=== PATIENT | female | born 1950 | race African-American/Black ===

== ENCOUNTER 2018-07-06 10:07 | Inpatient (IN) | payer MEDICARE, MEDICAID ==
[~2018-07-06] VITALS: Ht 177.8 cm; Wt 108.1 kg
[~2018-07-06 10:07] MED LIST: ALBUTEROL SULF8.5 GM INH; AMLODIPINE BESY10 MG ORAL; AZITHROMYCIN250 MG ORAL; CARVEDILOL25 MG ORAL; CLONIDINE0.1 MG GT; CLONIDINE0.1 MG PO; CLONIDINE1 EAC1 TD; CLOPIDOGREL75 MG ORAL; FAMOTIDINE20 MG ORAL; FUROSEMIDE20 M1 ORAL; FUROSEMIDE40 MG ORAL; HUMALOG100 UNIT/3 SUBQ; ISORDIL40 M1 PO; ISORDIL40 MG ORAL; LANTUS SOL100 UNIT/1 SUBQ; LANTUS5 UNITS SUBQ; LEVOTHYROXINE50 MCG ORAL; LIPITOR40 MG ORAL; LOSARTAN POTAS100 MG ORAL; OYSCO 500+D TA1 EAC1 PO; VITAMIN B-12250 MC2 PO; VITAMIN D22000 UNIT PO; Vit B12 PO
[2018-07-06] MEDS ORDERED: cloNIDine 0.2mg Tab ORAL ONE (10:30)
[2018-07-06] MEDS ORDERED: Morphine Sulfate 4mg/ml Inj (IV/IM USE ONLY) IVP ONE (10:45)
--- NOTE | 2018-07-06 10:52 | Emergency Room Report ---
History of Present Illness General Chief Complaint: Back Pain-No Injury Source: Patient Present Illness HPI Patient is a 67-year-old female presented after increased sharp left-sided flank pain. Patient reports having increased stabbing type pain. She had recently been seen in the hospital after pancreatitis episode. The patient had been dialyzed earlier in the day. The patient did not take her blood pressure medications. The patient reports having severe pain which was associated with diarrhea. 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 Hx Cerebrovascular Accident: Yes - December 2010 Hx Weakness: Yes - Left side weakness Review of Systems All Other Systems: negative except mentioned in HPI Physical Exam Vital Signs Date Time Temp Pulse Resp B/P (MAP) Pulse Ox O2 Delivery O2 Flow Rate FiO2 07/06/18 10:11 98.1 103 16 221/107 95 Room Air 98.1 Sp02 EP Interpretation: reviewed, normal General Appearance: normal inspection, well appearing, no apparent distress, alert, obese, Chronically Ill Head: atraumatic ENT: normal ENT inspection, hearing grossly normal, normal voice Neck: normal inspection, full range of motion, supple, no bony tend Respiratory: normal inspection, lungs clear, normal breath sounds, no respiratory distress, no retraction, no wheezing Cardiovascular #1: regular rate, rhythm, no edema Gastrointestinal: normal inspection, normal bowel sounds, non tender, soft, no guarding, no hernia Genitourinary: no CVA tenderness Musculoskeletal: normal inspection, back normal, normal range of motion Neurologic: normal inspection, alert, oriented x3, responsive, electric 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 Differential diagnosis included was not limited to pneumonia, renal stone, rib fracture, pulmonary embolism, pancreatitis, ulcer, enteritis, pyelonephritis among others. Because of complexity of patient's case laboratory testing and imaging studies were ordered.The laboratory testing was notable for normal white blood count. CT the abdomen pelvis read by radiology showed evidence of pancreatic inflammation consistent with pancreatitis. The patient was noted to have previous CT several months ago with similar symptoms. Patient was noted to have normal lipase. Patient is given clonidine for blood pressure. Dr. Talon Bro was contacted for inpatient management due to panel physician Labs Test 07/06/18 10:40 White Blood Count 6.9 K/UL (4.8-10.8) Red Blood Count 4.64 M/UL (4.20-5.40) Hemoglobin 12.2 G/DL (12.0-16.0) Hematocrit 39.3 % (37.0-47.0) Mean Corpuscular Volume 85 FL (80-99) Mean Corpuscular Hemoglobin 26.2 PG (27.0-31.0) Mean Corpuscular Hemoglobin Concent 31.0 G/DL (32.0-36.0) Red Cell Distribution Width 14.0 % (11.6-14.8) Platelet Count 222 K/UL (150-450) Mean Platelet Volume 8.2 FL (6.5-10.1) Neutrophils (%) (Auto) 62.3 % (45.0-75.0) Lymphocytes (%) (Auto) 26.0 % (20.0-45.0) Monocytes (%) (Auto) 7.9 % (1.0-10.0) Eosinophils (%) (Auto) 3.2 % (0.0-3.0) Basophils (%) (Auto) 0.5 % (0.0-2.0) Sodium Level 135 MMOL/L (136-145) Potassium Level 3.2 MMOL/L (3.5-5.1) Chloride Level 97 MMOL/L (98-107) Carbon Dioxide Level 25 MMOL/L (21-32) Anion Gap 13 mmol/L (5-15) Blood Urea Nitrogen 5 mg/dL (7-18) Creatinine 3.7 MG/DL (0.55-1.30) Estimat Glomerular Filtration Rate 14.8 mL/min (>60) Glucose Level 174 MG/DL (74-106) Calcium Level 9.1 MG/DL (8.5-10.1) Total Bilirubin 0.5 MG/DL (0.2-1.0) Aspartate Amino Transf (AST/SGOT) 14 U/L (15-37) Alanine Aminotransferase (ALT/SGPT) 10 U/L (12-78) Alkaline Phosphatase 188 U/L (46-116) Troponin I 0.005 ng/mL (0.000-0.056) Total Protein 8.0 G/DL (6.4-8.2) Albumin 3.8 G/DL (3.4-5.0) Globulin 4.2 g/dL Albumin/Globulin Ratio 0.9 (1.0-2.7) Lipase 65 U/L (73-393) Last Vital Signs Date Time Temp Pulse Resp B/P (MAP) Pulse Ox O2 Delivery O2 Flow Rate FiO2 07/06/18 10:47 98.1 07/06/18 10:35 167/79 07/06/18 10:11 103 16 95 Room Air Status: unchanged Disposition: ADMITTED INPATIENT Condition: Stable Referrals: NON PHYSICIAN (PCP) Sancho Castro MD Jul 06, 2018 10:52
[2018-07-06 10:58] LABS: BASOPHILS % (AUTO) 0.5 % (0.0-2.0); EOSINOPHILS % (AUTO) 3.2 % (0.0-3.0); HEMATOCRIT 39.3 % (37.0-47.0); HEMOGLOBIN 12.2 G/DL (12.0-16.0); MEAN CORPUSCULAR VOLUME 85 FL (80-99); MONOCYTES % (AUTO) 7.9 % (1.0-10.0); NEUTROPHILS % (AUTO) 62.3 % (45.0-75.0); PLATELET COUNT 222 K/UL (150-450); RED BLOOD COUNT 4.64 M/UL (4.20-5.40); WHITE BLOOD COUNT 6.9 K/UL (4.8-10.8)
[2018-07-06 11:00] VITALS: BP 167/79
[2018-07-06 11:10] LABS: ANION GAP 13 mmol/L (5-15); BLOOD UREA NITROGEN 5 mg/dL (7-18); CALCIUM 9.1 MG/DL (8.5-10.1); CARBON DIOXIDE 25 MMOL/L (21-32); CHLORIDE 97 MMOL/L (98-107); CREATININE 3.7 MG/DL (0.55-1.30); POTASSIUM 3.2 MMOL/L (3.5-5.1); SODIUM 135 MMOL/L (136-145)
[2018-07-06 11:14] LABS: ALANINE AMINOTRANSFERASE 10 U/L (12-78); ALBUMIN 3.8 G/DL (3.4-5.0); ALBUMIN/GLOBULIN RATIO 0.9 (1.0-2.7); ALKALINE PHOSPHATASE 188 U/L (46-116); ASPARTATE AMINO TRANSFERASE 14 U/L (15-37); BILIRUBIN,TOTAL 0.5 MG/DL (0.2-1.0)
--- NOTE | 2018-07-06 11:37 | Diagnostic Imaging Report ---
EXAM: CT Abdomen and Pelvis Without Intravenous Contrast CLINICAL HISTORY: ABD PAIN TECHNIQUE: Axial computed tomography images of the abdomen and pelvis without intravenous contrast. CTDI is 19.90 mGy and DLP is 1072 mGy-cm. One or more of the following dose reduction techniques were used: automated exposure control, adjustment of the mA and/or kV according to patient size, use of iterative reconstruction technique. COMPARISON: CT abdomen and pelvis dated 04/10/18 FINDINGS: Lung bases: Mild dependent atelectasis in bilateral lung bases. ABDOMEN: Liver: Unremarkable. Gallbladder and bile ducts: Status post cholecystectomy. No ductal dilation. Pancreas: Nonspecific enlarged/edematous appearance of the pancreatic head and uncinate process without definite mass lesion identified. Mild peripancreatic inflammatory stranding, which may suggest mild residual pancreatitis. No pancreatic ductal dilatation. No peripancreatic fluid collections. Spleen: Unremarkable. No splenomegaly. Adrenals: Unchanged appearance of a 1.5 cm left adrenal nodule, likely an adenoma. Kidneys and ureters: Unremarkable. No obstructing stones. No hydronephrosis. Stomach and bowel: Scattered diverticula in the descending and sigmoid colon without wall thickening or adjacent inflammatory change. No obstruction. PELVIS: Appendix: Not definitively identified. No findings to suggest acute appendicitis. Bladder: Unremarkable. No stones. Reproductive: The uterus and ovaries are not visualized and may be surgically absent. ABDOMEN and PELVIS: Intraperitoneal space: Unremarkable. No free air. No significant fluid collection. Bones/joints: Multilevel degenerative changes throughout the visualized spine with disc space loss and endplate osteophytes. No acute fracture. No dislocation. Soft tissues: Unremarkable. Vasculature: Atherosclerotic calcifications throughout the abdominal aorta and its proximal branches. No abnormal dilatation. Lymph nodes: Unremarkable. No enlarged lymph nodes. IMPRESSION: 1. Nonspecific enlarged/edematous appearance of the pancreatic head and uncinate process without definite mass lesion identified. Mild peripancreatic inflammatory stranding, which may suggest mild residual pancreatitis. No pancreatic ductal dilatation. No peripancreatic fluid collections. If there is continued concern, this can be further evaluated with pancreatic protocol contrast-enhanced CT or MRI. 2. Unchanged appearance of a 1.5 cm left adrenal nodule, likely an adenoma. 3. Descending and sigmoid colonic diverticulosis without evidence of acute inflammation.
[2018-07-06 13:00] VITALS: BP 114/53
[2018-07-06] MEDS ORDERED: OMEPRAZOLE20 M3 ORAL (15:14)
[2018-07-06] MEDS ORDERED: METOCLOPRAMIDE H5 M1 ORAL (15:14)
[2018-07-06] MEDS ORDERED: Morphine Sulfate 4mg/ml Inj (IV/IM USE ONLY) IVP SCH (15:45)
[2018-07-06 16:00] VITALS: BP 147/73
[2018-07-06] MEDS ORDERED: Morphine Sulfate 4mg/ml Inj (IV/IM USE ONLY) IVP PRN (16:00)
--- NOTE | 2018-07-06 16:04 | History & Physical ---
History and Physical History & Physicial HP dictated # [id number] Talon Bro MD Jul 06, 2018 16:04
[2018-07-06] MEDS: Carvedilol 12.5mg tab ORAL SCH ×2 (16:05→20:45)
[2018-07-06] MEDS: Losartan 50mg tab ORAL SCH (16:30)
[2018-07-06] MEDS: NovoLOG Insulin Flexpen SUBQ SCH ×2 (16:32→20:47)
[2018-07-06 17:13] VITALS: BP 147/73
--- NOTE | 2018-07-06 19:47 | History and Physical Report ---
DATE OF ADMISSION: 07/06/2018 CHIEF COMPLAINT: Severe left-sided flank pain. HISTORY OF PRESENT ILLNESS: This is a 67-year-old female with history of end-stage renal disease. She has been on dialysis since November 2015. She has had uncontrolled blood pressure for many years. She stated that it started in 1970s and also, she has diabetes. She had recently cholecystectomy at [facility], but since then, she has been in and out of the hospital for different reasons. She was admitted once for fluid overload at [facility], but she has also had this severe left-sided flank pain for which she was brought into the emergency room today. She had her dialysis today, however, the pain started just before dialysis started. The pain she describes as stabbing pain, which is worse she has ever had in her life. She was seen in the emergency room. The CT scan showed some enlarged head of the pancreas with some inflammation and there was mild inflammation in the rest of the pancreas. The question was if this is resolving pancreatitis. PAST MEDICAL HISTORY: Besides history of diabetes and hypertension, the patient has history of hypothyroidism. She has end-stage renal disease as mentioned, on dialysis every Sunday, and Sunday. She had a CVA in 2010 causing left-sided weakness, but she has regained most of her function and she walks with a cane. ALLERGIES: She has some problem with hydralazine, which she is intolerant. SOC: ial History The patient lives at home by herself. No history of smoking or alcohol abuse. REVIEW OF SYSTEMS: Noncontributory. PHYSICAL EXAMINATION: GENERAL: The patient is an elderly female, in no acute distress. VITAL SIGNS: Initial blood pressure was 221/107, pulse 103, temperature 98.1 degrees, respiratory rate of 16, however, the latest blood pressure is 110/53, pulse 83, and temperature 98.1 degrees. The patient was treated in the ER for her blood pressure. NECK: Supple. LUNGS: Clear to auscultation. HEART: S1 and S2 without murmurs or rubs. ABDOMEN: Soft and nontender. There is mild tenderness in the left flank. There is no abdominal tenderness. EXTREMITIES: No cyanosis or edema. LABORATORY FINDINGS: The CBC shows WBC of 6900, hematocrit is 39.3, hemoglobin is 12.2 and platelet is 222,000. The chemistry panel shows serum sodium 135, potassium 3.3, chloride 97, CO2 25, BUN is 5, creatinine 3.7, blood sugar is 174, calcium is 9.1, lipase is 65 and albumin is 3.8. ASSESSMENT: This is a 67-year-old female who is admitted with severe left flank pain, which is stabbing. She had signs of pancreatitis on CT scan. However, the lipase is not elevated. The question is ongoing pancreatitis or just resolving and also, the pain is atypical for pancreatitis. The question is if this is referred pain from the spine and/or musculoskeletal pain. PLAN: The patient will be on morphine IV, clear liquid diet. GI consultation and Neurology consultation will be obtained. The patient will likely need to have an MRI of the spine to see if the herniated disc, radiculopathy, etc. The case was discussed extensively with the patient and the son, who was at bedside. Talon Bro M.D. DR: Holly JOB#: [id number] CC:
[2018-07-06 20:00] VITALS: BP 154/65
[2018-07-06] MEDS: Morphine Sulfate 2mg/ml Inj IVP PRN (20:45)
[2018-07-06] MEDS: Atorvastatin 80mg tab ORAL SCH (20:45)
[2018-07-06] MEDS ORDERED: Zolpidem 5mg tab ORAL PRN (21:00)
[2018-07-06] MEDS ORDERED: Losartan 50mg tab ORAL SCH (21:00)
[2018-07-07] VITALS (7 sets, daily range): BP systolic 135–161; BP diastolic 72–94
[2018-07-07] MEDS: NovoLOG Insulin Flexpen SUBQ SCH ×4 (06:10→20:57)
[2018-07-07 08:14] LABS: ALANINE AMINOTRANSFERASE 14 U/L (12-78); ALBUMIN 3.2 G/DL (3.4-5.0); ALBUMIN/GLOBULIN RATIO 0.9 (1.0-2.7); ALKALINE PHOSPHATASE 160 U/L (46-116); ANION GAP 10 mmol/L (5-15); ASPARTATE AMINO TRANSFERASE 13 U/L (15-37); BILIRUBIN,TOTAL 0.5 MG/DL (0.2-1.0); BLOOD UREA NITROGEN 11 mg/dL (7-18); CALCIUM 8.4 MG/DL (8.5-10.1); CARBON DIOXIDE 25 MMOL/L (21-32); CHLORIDE 100 MMOL/L (98-107); CHOLESTEROL 175 MG/DL (< 200); CREATININE 5.7 MG/DL (0.55-1.30); HDL CHOLESTEROL 76 MG/DL (40-60); POTASSIUM 4.1 MMOL/L (3.5-5.1); SODIUM 135 MMOL/L (136-145); TRIGLYCERIDES 82 MG/DL (30-150)
[2018-07-07] MEDS: Losartan 50mg tab ORAL SCH ×2 (08:14→17:22)
[2018-07-07] MEDS ORDERED: Losartan 50mg tab ORAL SCH (09:00)
[2018-07-07] MEDS: Morphine Sulfate 2mg/ml Inj IVP PRN ×2 (10:57→22:26)
[2018-07-07] MEDS ORDERED: Gadavist 7.5mMol/7.5ml vial IV PRN (11:45)
--- NOTE | 2018-07-07 13:12 | General Progress Note ---
Assessment/Plan Problem List: (1) HTN (hypertension) ICD Codes: I10 - Essential (primary) hypertension SNOMED: 09028896 (2) ESRD (end stage renal disease) on dialysis ICD Codes: N18.6 - End stage renal disease; Z99.2 - Dependence on renal dialysis SNOMED: 677915978 (3) Pancreatitis ICD Codes: K85.90 - Acute pancreatitis without necrosis or infection, unspecified SNOMED: 56561861 Assessment/Plan pain meds MRI of spine GI F/U Watch BP HD on Sunday Subjective Allergies: Coded Allergies: No Known Allergies (Unverified , 05/20/13) Subjective feels better Objective Last 24 Hour Vital Signs Date Time Temp Pulse Resp B/P (MAP) Pulse Ox O2 Delivery O2 Flow Rate FiO2 07/07/18 12:00 98.1 74 18 155/76 (102) 98 98.1 07/07/18 11:27 97.7 07/07/18 10:57 97.7 07/07/18 09:05 Room Air 07/07/18 08:14 74 157/72 07/07/18 08:00 97.7 74 19 157/72 (100) 98 97.7 07/07/18 04:00 97.9 76 20 148/75 (99) 98 97.9 07/07/18 00:00 98.0 71 20 135/74 (94) 95 98.0 07/06/18 21:00 Room Air 07/06/18 20:45 72 154/65 07/06/18 20:00 97.9 72 20 154/65 (94) 97 97.9 07/06/18 17:13 98.2 85 20 147/73 (97) 98 98.2 07/06/18 16:26 98.1 07/06/18 16:05 83 147/73 07/06/18 16:05 83 110/53 07/06/18 16:00 98.2 85 20 147/73 (97) 98 98.2 07/06/18 15:20 Room Air 07/06/18 15:00 98.1 83 18 110/53 98 Room Air 98.1 Intake and Output 07/06/18 07/07/18 19:00 07:00 Intake Total 240 ml Output Total 30 ml Balance 210 ml Intake Oral 240 ml Output Urine Total 30 ml # Voids 1 3 Laboratory Tests 10/14/18 06:15: Sodium Level 135L, Potassium Level 4.1, Chloride Level 100, Carbon Dioxide Level 25, Anion Gap 10, Blood Urea Nitrogen 11, Creatinine 5.7#H, Estimat Glomerular Filtration Rate 9.0, Glucose Level 197H, Calcium Level 8.4L, Total Bilirubin 0.5, Aspartate Amino Transf (AST/SGOT) 13L, Alanine Aminotransferase ( ALT/SGPT) 14, Alkaline Phosphatase 160H, Total Protein 6.8, Albumin 3.2L, Globulin 3.6, Albumin/Globulin Ratio 0.9L, Triglycerides Level 82, Cholesterol Level 175, LDL Cholesterol 74, HDL Cholesterol 76H, Cholesterol/HDL Ratio 2.3L Height (Feet): 5 Height (Inches): 10.00 Weight (Pounds): 241 Respiratory/Chest: lungs clear Abdomen: non tender Edema: no edema noted Generalized Talon Bro MD Jul 07, 2018 13:12
[2018-07-07] MEDS: Miralax 17gm pkt ORAL PRN (17:28)
--- NOTE | 2018-07-07 19:45 | Consultation ---
DATE OF CONSULTATION: 07/07/2018 GASTROENTEROLOGY CONSULTATION CONSULTING PHYSICIAN: Julio Cesar Adams M.D. CHIEF COMPLAINT: Abdominal pain. HISTORY OF PRESENT ILLNESS: This is a very pleasant 67-year-old female with past medical history of pancreatitis possibly gallstone induced in March 2018. She had a cholecystectomy done at another facility, another hospital, was discharged. According to her, since that she has been still having abdominal pain, sharp, left-sided, going to the back. She stated the pain was constant, but yesterday got severely worse that is why she came to the hospital. She stated she does not drink, she does not smoke, but used to drink only two drinks per month. Now, she does not even drink that and she is still having pain. She also admits to a weight loss of 20 pounds in the last three months. PAST MEDICAL HISTORY: Significant for: 1. History of diabetes. 2. . 3. Possible gallstone pancreatitis, status post cholecystectomy. 4. Endstage renal disease, on hemodialysis. 5. Diverticulosis. ALLERGIES: No known allergies. MEDICATIONS: Please see medication reconciliation list. SOCIAL HISTORY: The patient is a social drinker. No IV drug abuse. No tobacco use. FAMILY HISTORY: Noncontributory. REVIEW OF SYSTEMS: A 10-point review of systems was performed and pertinent positives in HPI. PHYSICAL EXAMINATION: VITAL SIGNS: Temperature 97.9, pulse 76, respirations 20, and blood pressure . HEENT: Normocephalic and atraumatic. Sclerae anicteric. NECK: Supple. No evidence of lymphadenopathy. CARDIOVASCULAR: Regular rate and rhythm, plus S1 and S2. LUNGS: breath sounds bilaterally. ABDOMEN: soft. Minimal tenderness to palpation in the epigastric area. No rebound. No guarding. No peritoneal sign. EXTREMITIES: No cyanosis, no clubbing, no edema. LABORATORY AND DIAGNOSTIC DATA: White count 6.9, hemoglobin 12, hematocrit 39, and platelet count is 222. Chem-7, sodium 135, potassium 3.2, BUN is 5, creatinine . Liver function tests normal except for alkaline phosphatase of 188. CT scan without contrast showed evidence of pancreatic edema suspicious for pancreatitis. No biliary dilatation, diverticulosis without any diverticulitis. ASSESSMENT AND PLAN: This is a 67-year-old female with recurrent, seems to be pancreatitis, etiology at this time is unknown. According to the patient, she is not drinking or smoking anymore. A 20 pounds weight loss is concerning. Plan will be to order CT with contrast. Pancreatic protocol. The patient is dialysis patient, it should be arranged by to be followed by hemodialysis to filter out the contrast. We are going to order CT with contrast, pancreatic protocol to get another view of the pancreas. We ordered lipid panel. We ordered CA 19-9. We are going to repeat order laboratories for tomorrow. We are going to advance her diet to full liquid diet. The patient might benefit from the EUS if CT with contrast is concerning. Julio Cesar Adams M.D. DR: VANESSA JOB#: [id number] CC:
[2018-07-07] MEDS: Carvedilol 12.5mg tab ORAL SCH (20:54)
[2018-07-07] MEDS: Atorvastatin 80mg tab ORAL SCH (20:54)
[2018-07-08] VITALS (8 sets, daily range): BP systolic 132–177; BP diastolic 70–96
[2018-07-08] MEDS: NovoLOG Insulin Flexpen SUBQ SCH ×4 (05:41→21:25)
[2018-07-08 06:42] LABS: BASOPHILS % (AUTO) 0.8 % (0.0-2.0); EOSINOPHILS % (AUTO) 6.6 % (0.0-3.0); HEMATOCRIT 34.3 % (37.0-47.0); HEMOGLOBIN 11.3 G/DL (12.0-16.0); LYMPHOCYTES % (AUTO) 32.2 % (20.0-45.0); MEAN CORPUSCULAR VOLUME 85 FL (80-99); MONOCYTES % (AUTO) 10.3 % (1.0-10.0); NEUTROPHILS % (AUTO) 50.2 % (45.0-75.0); PLATELET COUNT 198 K/UL (150-450); RED BLOOD COUNT 4.03 M/UL (4.20-5.40); RED CELL DISTRIBUTION WIDTH 14.6 % (11.6-14.8); WHITE BLOOD COUNT 4.5 K/UL (4.8-10.8)
[2018-07-08 06:57] LABS: AMYLASE 18 U/L (25-115)
[2018-07-08 07:00] LABS: ALANINE AMINOTRANSFERASE 16 U/L (12-78); ALBUMIN 3.5 G/DL (3.4-5.0); ALBUMIN/GLOBULIN RATIO 0.9 (1.0-2.7); ALKALINE PHOSPHATASE 190 U/L (46-116); ANION GAP 11 mmol/L (5-15); ASPARTATE AMINO TRANSFERASE 14 U/L (15-37); BILIRUBIN,TOTAL 0.5 MG/DL (0.2-1.0); BLOOD UREA NITROGEN 16 mg/dL (7-18); CALCIUM 8.8 MG/DL (8.5-10.1); CARBON DIOXIDE 25 MMOL/L (21-32); CHLORIDE 97 MMOL/L (98-107); CHOLESTEROL 179 MG/DL (< 200); CREATININE 7.3 MG/DL (0.55-1.30); HDL CHOLESTEROL 83 MG/DL (40-60); POTASSIUM 3.8 MMOL/L (3.5-5.1); SODIUM 133 MMOL/L (136-145); TRIGLYCERIDES 101 MG/DL (30-150)
[2018-07-08] MEDS ORDERED: Isovue-300 100ml vial INJ PRN (08:00)
[2018-07-08] MEDS: Carvedilol 12.5mg tab ORAL SCH ×2 (08:11→20:22)
[2018-07-08] MEDS: Losartan 50mg tab ORAL SCH ×2 (08:11→17:06)
--- NOTE | 2018-07-08 12:35 | General Progress Note ---
Assessment/Plan Problem List: (1) HTN (hypertension) ICD Codes: I10 - Essential (primary) hypertension SNOMED: 78755389 (2) ESRD (end stage renal disease) on dialysis ICD Codes: N18.6 - End stage renal disease; Z99.2 - Dependence on renal dialysis SNOMED: 674109299 (3) Pancreatitis ICD Codes: K85.90 - Acute pancreatitis without necrosis or infection, unspecified SNOMED: 68118753 Assessment/Plan pain meds MRI of spine GI F/U Watch BP HD on Sunday Subjective Allergies: Coded Allergies: No Known Allergies (Unverified , 05/20/13) Subjective all noted Objective Last 24 Hour Vital Signs Date Time Temp Pulse Resp B/P (MAP) Pulse Ox O2 Delivery O2 Flow Rate FiO2 07/08/18 08:11 163/80 07/08/18 08:11 76 163/80 07/08/18 08:11 76 163/80 07/08/18 07:54 98.1 76 19 163/80 (107) 92 98.1 07/08/18 07:47 Room Air 07/08/18 04:00 98.1 75 19 132/70 (90) 92 98.1 07/08/18 02:37 75 158/80 (106) 07/08/18 00:55 98.7 76 19 165/85 (111) 94 98.7 07/07/18 22:56 98.7 07/07/18 22:26 98.7 07/07/18 22:13 80 157/94 (115) 07/07/18 21:14 Room Air 07/07/18 20:54 79 161/94 07/07/18 20:53 98.7 79 19 161/94 (116) 93 98.7 07/07/18 17:22 151/80 07/07/18 16:00 97.7 77 19 151/80 (103) 98 97.7 Intake and Output 07/07/18 07/08/18 19:00 07:00 Intake Total 1080 ml Balance 1080 ml Intake Oral 1080 ml # Voids 4 3 Laboratory Tests 07/08/18 05:50: White Blood Count 4.5L, Red Blood Count 4.03L, Hemoglobin 11.3L, Hematocrit 34.3L, Mean Corpuscular Volume 85, Mean Corpuscular Hemoglobin 28.1, Mean Corpuscular Hemoglobin Concent 33.0, Red Cell Distribution Width 14.6, Platelet Count 198, Mean Platelet Volume 7.8, Neutrophils (%) (Auto) 50.2, Lymphocytes (% ) (Auto) 32.2, Monocytes (%) (Auto) 10.3H, Eosinophils (%) (Auto) 6.6H, Basophils (%) (Auto) 0.8, Sodium Level 133L, Potassium Level 3.8, Chloride Level 97L, Carbon Dioxide Level 25, Anion Gap 11, Blood Urea Nitrogen 16, Creatinine 7.3H, Estimat Glomerular Filtration Rate 6.8, Glucose Level 209H, Calcium Level 8.8, Total Bilirubin 0.5, Aspartate Amino Transf (AST/SGOT) 14L, Alanine Aminotransferase (ALT/SGPT) 16, Alkaline Phosphatase 190H, Total Protein 7.3, Albumin 3.5, Globulin 3.8, Albumin/Globulin Ratio 0.9L, Triglycerides Level 101, Cholesterol Level 179, LDL Cholesterol 70, HDL Cholesterol 83H, Cholesterol/HDL Ratio 2.2L, Amylase Level 18L, Lipase 67L, CA 19-9 Antigen [Pending] Height (Feet): 5 Height (Inches): 10.00 Weight (Pounds): 253 Cardiovascular: normal rate Respiratory/Chest: lungs clear Edema: no edema noted Generalized Talon Bro MD Jul 08, 2018 12:35
[2018-07-08] MEDS ORDERED: Heparin Sod 1000 units/ml 10ml IV PRN (12:43)
--- NOTE | 2018-07-08 15:25 | Diagnostic Imaging Report ---
Indication: Abdominal pain Technique: Continuous helical transaxial imaging of the abdomen and pelvis was obtained from the lung bases to the pubic symphysis during intravenous contrast administration. Coronal 2-D reformats were also obtained. Study obtained in a Siemens sensation [address] Automatic Exposure Control was utilized. Total Dose length Product (DLP): [address] Dose Index Volume (CTDIvol): 22.44, 29.03 mGy Comparison: Noncontrast CT abdomen pelvis 07/06/2018 Findings: Note the injection bolus is relatively poor. As such the evaluation is limited. There is a suspected mass in the pancreatic head suspicious for pancreatic adenocarcinoma. The biliary ducts do not appear dilated. The mass primarily involves the uncinate process. There is relative atrophy of the body and tail the pancreas which is a secondary sign. There is a mass involving the left adrenal gland which may be a adenoma. Metastatic disease not excluded. There are are several ill-defined hypodensities in the liver suspicious for metastatic neoplasm. Further evaluation with endoscopic ultrasound recommended. This may also aid and biopsy as this is the preferred method for biopsy of this mass. Differential diagnosis includes focal pancreatitis but this is felt to be less likely based on the appearance. Cholecystectomy noted. There is mild right posterior atelectasis. The spleen is unremarkable as visualized. Aortoiliac calcifications are present. No definite adenopathy is appreciated. The kidneys are atrophic. Diverticula noted in the sigmoid colon. No evidence of diverticulitis. Bladder is completely nondistended. There is narrowing of intervertebral discs and accompanying endplate osteophyte formation. Hypertrophied facet joints also demonstrated.. Degenerative changes of both hips also noted. IMPRESSION: Suspicion of a 3.5 cm mass involving the head of the pancreas and uncinate process. Findings suspicious for malignancy. Evaluation and biopsy with endoscopic ultrasound recommended. Differential includes focal pancreatitis which is felt to be less likely based on imaging. Suspicion of metastatic neoplasm involving the liver. Nonspecific mass involving the left adrenal gland. Adenoma versus metastatic disease. Diverticulosis of the colon. No evidence of diverticulitis Atrophic kidneys Atherosclerotic vascular disease Mild right basal atelectasis. The CT scanner at [facility] is accredited by the [employer] and the scans are performed using dose optimization techniques as appropriate to a performed exam including Automatic Exposure control.
[2018-07-08] MEDS: Atorvastatin 80mg tab ORAL SCH (20:22)
--- NOTE | 2018-07-08 20:43 | Consultation ---
Consult Note Consult Note NEUROLOGY CONSULTATION: Full note dictated #[id number] 67 y/o, RH, BF with PH of thyroid problems, HTN, DM, ESRD on HD, a stroke with left paresis a few years ago and a cholecystectomy in March 2018. Since she has had her juliet she has been having pain that starts in the epigastric region and radiates into the back and sometimes into the left flank usually after she has just eaten. She rarely gets it spontaneously too. She is free of pain now. ON EXAM: Left hemiparesis Left DTRs 1+ with 0 reflexes on right. IMPRESSION: Pancreatic mass with pancreatic pain. REC: Evaluation and management of pancreatic mass as per GI. Observe Kimberley Rueda M.D., M.S.P.KIMBERLEY MONGE Jul 08, 2018 20:43
[2018-07-08] MEDS: Morphine Sulfate 2mg/ml Inj IVP PRN (21:29)
--- NOTE | 2018-07-08 22:19 | General Progress Note ---
Assessment/Plan Assessment/Plan Assessment - head of pancreas mass, suspicious for carcinoma - ill-defined liver lesions, possible mets - ESRD/HD - Mildly elevated Alk phos - ? renal osteodystrophy, ? liver mets Recommendations - PO as tolerated - await CA 19-9 - check GGT - will arrange for EUS / FNA for Sunday Subjective Allergies: Coded Allergies: No Known Allergies (Unverified , 07/08/18) Subjective Feels better less abdominal pain today tolerating PO Objective Last 24 Hour Vital Signs Date Time Temp Pulse Resp B/P (MAP) Pulse Ox O2 Delivery O2 Flow Rate FiO2 07/08/18 21:00 Room Air 07/08/18 20:22 77 163/76 07/08/18 20:00 97.7 73 19 177/87 (117) 96 97.7 07/08/18 18:11 77 163/76 (105) 07/08/18 17:06 173/96 07/08/18 16:07 97.8 73 18 173/96 (121) 94 97.8 07/08/18 12:00 97.5 79 18 164/89 (114) 95 97.5 07/08/18 08:11 163/80 07/08/18 08:11 76 163/80 07/08/18 08:11 76 163/80 07/08/18 07:54 98.1 76 19 163/80 (107) 92 98.1 07/08/18 07:47 Room Air 07/08/18 04:00 98.1 75 19 132/70 (90) 92 98.1 07/08/18 02:37 75 158/80 (106) 07/08/18 00:55 98.7 76 19 165/85 (111) 94 98.7 07/07/18 22:56 98.7 07/07/18 22:26 98.7 07/07/18 22:13 80 157/94 (115) Intake and Output 07/07/18 07/08/18 19:00 07:00 Intake Total 1080 ml Balance 1080 ml Intake Oral 1080 ml # Voids 4 3 Laboratory Tests 07/08/18 05:50: White Blood Count 4.5L, Red Blood Count 4.03L, Hemoglobin 11.3L, Hematocrit 34.3L, Mean Corpuscular Volume 85, Mean Corpuscular Hemoglobin 28.1, Mean Corpuscular Hemoglobin Concent 33.0, Red Cell Distribution Width 14.6, Platelet Count 198, Mean Platelet Volume 7.8, Neutrophils (%) (Auto) 50.2, Lymphocytes (% ) (Auto) 32.2, Monocytes (%) (Auto) 10.3H, Eosinophils (%) (Auto) 6.6H, Basophils (%) (Auto) 0.8, Sodium Level 133L, Potassium Level 3.8, Chloride Level 97L, Carbon Dioxide Level 25, Anion Gap 11, Blood Urea Nitrogen 16, Creatinine 7.3H, Estimat Glomerular Filtration Rate 6.8, Glucose Level 209H, Calcium Level 8.8, Total Bilirubin 0.5, Aspartate Amino Transf (AST/SGOT) 14L, Alanine Aminotransferase (ALT/SGPT) 16, Alkaline Phosphatase 190H, Total Protein 7.3, Albumin 3.5, Globulin 3.8, Albumin/Globulin Ratio 0.9L, Triglycerides Level 101, Cholesterol Level 179, LDL Cholesterol 70, HDL Cholesterol 83H, Cholesterol/HDL Ratio 2.2L, Amylase Level 18L, Lipase 67L, CA 19-9 Antigen [Pending] Height (Feet): 5 Height (Inches): 10.00 Weight (Pounds): 253 Objective Obese AA woman NCAT supple CTA RRR abd soft obese ND no edema nonfocal Karina Desai MD Jul 08, 2018 22:19
[2018-07-09] VITALS: BP 143/77
[2018-07-09 04:00] VITALS: BP 176/88
[2018-07-09] MEDS: NovoLOG Insulin Flexpen SUBQ SCH ×4 (05:58→20:43)
[2018-07-09 07:16] LABS: BASOPHILS % (AUTO) 0.6 % (0.0-2.0); EOSINOPHILS % (AUTO) 5.6 % (0.0-3.0); HEMATOCRIT 31.7 % (37.0-47.0); HEMOGLOBIN 10.3 G/DL (12.0-16.0); LYMPHOCYTES % (AUTO) 27.7 % (20.0-45.0); MEAN CORPUSCULAR VOLUME 84 FL (80-99); MONOCYTES % (AUTO) 10.1 % (1.0-10.0); NEUTROPHILS % (AUTO) 56.1 % (45.0-75.0); PLATELET COUNT 157 K/UL (150-450); RED BLOOD COUNT 3.77 M/UL (4.20-5.40); RED CELL DISTRIBUTION WIDTH 13.9 % (11.6-14.8); WHITE BLOOD COUNT 4.6 K/UL (4.8-10.8)
[2018-07-09 07:32] LABS: INR 1.1 (0.9-1.1)
[2018-07-09 07:33] LABS: ANION GAP 11 mmol/L (5-15); BLOOD UREA NITROGEN 21 mg/dL (7-18); CALCIUM 8.4 MG/DL (8.5-10.1); CARBON DIOXIDE 23 MMOL/L (21-32); CHLORIDE 98 MMOL/L (98-107); POTASSIUM 3.9 MMOL/L (3.5-5.1); SODIUM 132 MMOL/L (136-145)
[2018-07-09 08:37] VITALS: BP 191/97
--- NOTE | 2018-07-09 08:45 | Consultation ---
DATE OF CONSULTATION: 07/08/2018 NEUROLOGY CONSULTATION CONSULTING PHYSICIAN: Ravinder Rueda M.D. REQUESTING PHYSICIAN: Talon Bro M.D. HISTORY: Ms. Yumiko Raines is a 67-year-old, right-handed, black lady, who does have past history of thyroid problems, hypertension, diabetes mellitus, end-stage renal disease for which she is hemodialysis dependent, a stroke with left sided weakness a few years ago, and a cholecystectomy in March 2018 for abdominal pain and discomfort. Even after she had cholecystectomy performed, she has continued to have pain that starts in her epigastric region and radiates into the back. Sometimes, it radiates straight into the back and sometimes across the left flank. The pain is a sharp severe pain and usually occurs after she has eaten. Rarely, she gets the pain spontaneously without even eating. On the day of admission, she was getting hemodialysis and while she was getting the hemodialysis, she had severe pain radiating from the epigastrium into the back along the left flank. As a result of that, she was hospitalized. At this point in time, she is free of pain. PAST MEDICAL HISTORY: Significant for hypertension, thyroid problems, diabetes mellitus, end-stage renal disease for which she is hemodialysis dependent, stroke with left hemiparesis a few years ago, and cholecystectomy in March 2018. FAMILY HISTORY: Her brother had esophageal cancer. Her mother and sister had heart problems. PERSONAL HISTORY: Home: She lives alone. 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 Habits: She denies use of alcohol, tobacco, or illicit drugs. PRESENT MEDICATIONS: Include atorvastatin, Ambien, Cozaar, insulin, Norvasc, Coreg, Plavix, morphine p.r.n., pantoprazole, MiraLAX p.r.n., Zofran p.r.n. PHYSICAL EXAMINATION: GENERAL: She is a well-developed, well-nourished, obese, black lady, sitting up in a chair, in no acute distress. VITAL SIGNS: Pulse 77/minute, blood pressure 163/76 mmHg, respirations 18/minute, and temperature 97.8 degrees Fahrenheit. HEAD: Normocephalic and atraumatic. EENT: Examination benign. NECK: No neck rigidity was observed. NEUROLOGIC EXAMINATION: MENTAL STATUS EXAMINATION: She was awake and alert. She was oriented to person, place, and time. She was able to recall 3/3 words immediately, after 1 minute, and after 3 minutes. She was able to remember presidents Trump through [employer] with hints. Her mathematical skills were good. Her visuospatial function was preserved. SPEECH: She had no dysarthria. LANGUAGE: She had no aphasia. CRANIAL NERVE EXAMINATION: II: The visual phillips were intact on confrontation testing. III, IV & : The external ocular movements were full and the pupils 3 mm in diameter, equal, round, regular, and reactive to light. V: She had normal facial sensations, and the temporales, masseters, and pterygoids functioned normally. VII: She had mild left VII central facial paresis. VIII: She was able to hear well bilaterally and had no nystagmus. IX: The palate moved symmetrically on phonation. X: She had no hoarseness of voice. XI: The sternocleidomastoids and trapezii functioned normally. XII: The tongue was in the midline without any fasciculations or atrophy. MOTOR SYSTEM: The tone was normal in all four extremities. Examination of muscle mass revealed no focal wasting. Examination of power revealed G 5/5 power except for G 4++/5 power in the left finger extensors and grade 4+/5 power in the left iliopsoas. SENSORY EXAMINATION: She had intact sensations to pinprick, light touch, and graphesthesia. COORDINATION: She performed well on tecies-bp-xxui and mvki-td-elhz testing. The Romberg test was negative. REFLEXES: 0 on the right and 1+ on the left at the biceps, triceps, brachioradialis, and knees; 0 at both ankles. The plantar responses were flexor bilaterally. STANCE: She stood up with support. GAIT: She walked independently. DIAGNOSTIC IMPRESSION: 1. Ms. Yumiko Raines is a 67-year-old, right-handed, black lady, with past history of thyroid problems, hypertension, diabetes mellitus, and end-stage renal disease for which she is hemodialysis dependent, a stroke with left hemiparesis a few years ago, and cholecystectomy in March 2018, who has been having pain that starts in the epigastric region and radiates into the back and sometimes along the left flank. The pain usually occurs after she has just eaten and is quite severe and has a stabbing quality. At times, the pain occurs spontaneously without eating. She had one of these episodes of pain while she was having hemodialysis a few days ago and as a result of that, she was hospitalized. 2. At this point in time, on neurological examination, she has a mild left hemiparesis involving the face and upper and lower extremities and brisker reflexes on the left side compared to the right. She is free of pain at this point in time. 3. Laboratory data revealed that she is anemic with hemoglobin of 11.3 G. Her chemistry panel reveals creatinine elevated to 7.3, glucose elevated to 209, alkaline phosphatase elevated to 190, amylase at 18, and lipase at 67. 4. A CT scan of the abdomen and pelvis without and with contrast reveals a 3.5-cm mass involving the head of the pancreas and the uncinate process suspicious of malignancy. In addition, there seems to be a mass in the liver and a mass in the left adrenal gland. 5. The patient's history and neurological examination are most compatible with pancreatic mass, most probably a tumor causing pancreatic pain. RECOMMENDATIONS: 1. The patient should be evaluated for her pancreatic mass by a electronic masking system operator. Dr. Adams is evaluating her. 2. At this point in time, no neurological intervention is recommended. Thank you for entrusting me with the care of Ms. Eamon Raines. I shall follow her with you. Ravinder Rueda M.D., M.S.P.H. DR: Therese JOB#: [id number] MTDClayton
[2018-07-09] MEDS: Losartan 50mg tab ORAL SCH ×2 (09:00→17:00)
[2018-07-09] MEDS: Carvedilol 12.5mg tab ORAL SCH ×2 (09:00→20:42)
[2018-07-09] MEDS: Morphine Sulfate 2mg/ml Inj IVP PRN ×2 (11:28→23:25)
[2018-07-09 11:56] VITALS: BP 144/70
--- NOTE | 2018-07-09 15:37 | General Progress Note ---
Assessment/Plan Problem List: (1) HTN (hypertension) ICD Codes: I10 - Essential (primary) hypertension SNOMED: 01975400 (2) ESRD (end stage renal disease) on dialysis ICD Codes: N18.6 - End stage renal disease; Z99.2 - Dependence on renal dialysis SNOMED: 949906095 (3) Pancreatitis ICD Codes: K85.90 - Acute pancreatitis without necrosis or infection, unspecified SNOMED: 01009859 (4) Pancreatic mass ICD Codes: K86.9 - Disease of pancreas, unspecified SNOMED: 795311934 Assessment/Plan pain meds Discussed with Dr Desai EUS/FNA tomorrow Discussed with case preparer and liner and RN HD on watch BP Subjective Allergies: Coded Allergies: No Known Allergies (Unverified , 07/08/18) Subjective pt was seen on dialyis Objective Last 24 Hour Vital Signs Date Time Temp Pulse Resp B/P (MAP) Pulse Ox O2 Delivery O2 Flow Rate FiO2 07/09/18 12:21 Room Air 07/09/18 11:56 97.0 82 16 144/70 (94) 96 97.0 07/09/18 09:37 80 191/97 07/09/18 09:00 191/97 07/09/18 09:00 80 191/97 07/09/18 08:57 Room Air 07/09/18 08:37 98.7 80 16 191/97 (128) 98 98.7 07/09/18 04:00 98.2 74 18 176/88 (117) 92 98.2 07/09/18 00:00 97.7 74 18 143/77 (99) 94 97.7 07/08/18 21:00 Room Air 07/08/18 20:22 77 163/76 07/08/18 20:00 97.7 73 19 177/87 (117) 96 97.7 07/08/18 18:11 77 163/76 (105) 07/08/18 17:06 173/96 07/08/18 16:07 97.8 73 18 173/96 (121) 94 97.8 Intake and Output 07/08/18 07/09/18 19:00 07:00 Intake Total 240 ml 460 ml Balance 240 ml 460 ml Intake Oral 240 ml 460 ml # Voids 3 2 Laboratory Tests 07/09/18 05:55: White Blood Count 4.6L, Red Blood Count 3.77L, Hemoglobin 10.3L, Hematocrit 31.7L, Mean Corpuscular Volume 84, Mean Corpuscular Hemoglobin 27.2, Mean Corpuscular Hemoglobin Concent 32.3, Red Cell Distribution Width 13.9, Platelet Count 157, Mean Platelet Volume 7.9, Neutrophils (%) (Auto) 56.1, Lymphocytes (% ) (Auto) 27.7, Monocytes (%) (Auto) 10.1H, Eosinophils (%) (Auto) 5.6H, Basophils (%) (Auto) 0.6, Prothrombin Time 11.5, Prothromb Time International Ratio 1.1, Activated Partial Thromboplast Time 29, Sodium Level 132L, Potassium Level 3.9, Chloride Level 98, Carbon Dioxide Level 23, Anion Gap 11, Blood Urea Nitrogen 21H, Creatinine 9.0H, Estimat Glomerular Filtration Rate 5.3, Glucose Level 163H, Calcium Level 8.4L, Gamma Glutamyl Transpeptidase 40 Height (Feet): 5 Height (Inches): 10.00 Weight (Pounds): 259 Respiratory/Chest: lungs clear Abdomen: tender Talon Bro MD Jul 09, 2018 15:37
[2018-07-09 15:54] VITALS: BP 166/85
[2018-07-09 20:00] VITALS: BP 155/78
[2018-07-09] MEDS: Atorvastatin 80mg tab ORAL SCH (20:42)
--- NOTE | 2018-07-09 20:50 | Neurology Progress Note ---
Interim History Interim History Interim History Ms. Eamon Raines feels about the same as yesterday. She continues to have the severe pain that starts in the epigastric region and then goes in the back. Plans are for an endoscopy and biopsy tomorrow. She denies any new neurologic symptoms. Review of Systems Neuro Review of Systems Benign. Objective Physical Exam Last Vital Signs Date Time Temp Pulse Resp B/P (MAP) Pulse Ox O2 Delivery O2 Flow Rate FiO2 07/09/18 20:00 97.7 86 20 155/78 (103) 93 97.7 07/09/18 12:21 Room Air Laboratory Tests Test 07/09/18 05:55 White Blood Count 4.6 K/UL (4.8-10.8) L Red Blood Count 3.77 M/UL (4.20-5.40) L Hemoglobin 10.3 G/DL (12.0-16.0) L Hematocrit 31.7 % (37.0-47.0) L Mean Corpuscular Volume 84 FL (80-99) Mean Corpuscular Hemoglobin 27.2 PG (27.0-31.0) Mean Corpuscular Hemoglobin Concent 32.3 G/DL (32.0-36.0) Red Cell Distribution Width 13.9 % (11.6-14.8) Platelet Count 157 K/UL (150-450) Mean Platelet Volume 7.9 FL (6.5-10.1) Neutrophils (%) (Auto) 56.1 % (45.0-75.0) Lymphocytes (%) (Auto) 27.7 % (20.0-45.0) Monocytes (%) (Auto) 10.1 % (1.0-10.0) H Eosinophils (%) (Auto) 5.6 % (0.0-3.0) H Basophils (%) (Auto) 0.6 % (0.0-2.0) Prothrombin Time 11.5 SEC (9.30-11.50) Prothromb Time International Ratio 1.1 (0.9-1.1) Activated Partial Thromboplast Time 29 SEC (23-33) Sodium Level 132 MMOL/L (136-145) L Potassium Level 3.9 MMOL/L (3.5-5.1) Chloride Level 98 MMOL/L (98-107) Carbon Dioxide Level 23 MMOL/L (21-32) Anion Gap 11 mmol/L (5-15) Blood Urea Nitrogen 21 mg/dL (7-18) H Creatinine 9.0 MG/DL (0.55-1.30) H Estimat Glomerular Filtration Rate 5.3 mL/min (>60) Glucose Level 163 MG/DL (74-106) H Calcium Level 8.4 MG/DL (8.5-10.1) L Gamma Glutamyl Transpeptidase 40 U/L (5-85) Neurologic Exam Objective PHYSICAL EXAMINATION: GENERAL: She is a well-developed, well-nourished, obese, black lady, sitting up in a chair, in no acute distress. HEAD: Normocephalic and atraumatic. EENT: Examination benign. NECK: No neck rigidity was observed. NEUROLOGIC EXAMINATION: MENTAL STATUS EXAMINATION: She was awake and alert. She was oriented to person, place, and time. She was able to recall 3/3 words immediately, after 1 minute, and after 3 minutes. She was able to remember presidents Trump through [employer] with hints. Her mathematical skills were good. Her visuospatial function was preserved. SPEECH: She had no dysarthria. LANGUAGE: She had no aphasia. CRANIAL NERVE EXAMINATION: II: The visual phillips were intact on confrontation testing. III, IV & : The external ocular movements were full and the pupils 3 mm in diameter, equal, round, regular, and reactive to light. V: She had normal facial sensations, and the temporales, masseters, and pterygoids functioned normally. VII: She had mild left VII central facial paresis. VIII: She was able to hear well bilaterally and had no nystagmus. IX: The palate moved symmetrically on phonation. X: She had no hoarseness of voice. XI: The sternocleidomastoids and trapezii functioned normally. XII: The tongue was in the midline without any fasciculations or atrophy. MOTOR SYSTEM: The tone was normal in all four extremities. Examination of muscle mass revealed no focal wasting. Examination of power revealed G 5/5 power except for G 4++/5 power in the left finger extensors and G 4+/5 power in the left iliopsoas. SENSORY EXAMINATION: She had intact sensations to pinprick, light touch, and graphesthesia. COORDINATION: She performed well on fizcfk-pz-mppz and nxnm-hw-arez testing. The Romberg test was negative. REFLEXES: 0 on the right and 1+ on the left at the biceps, triceps, brachioradialis, and knees; 0 at both ankles. The plantar responses were flexor bilaterally. STANCE: She stood up with support. GAIT: She walked independently. Impression/Recommendations Diagnostic Impression 1. Ms. Yumiko Raines is a 67-year-old, right-handed, black lady, with past history of thyroid problems, hypertension, diabetes mellitus, and end- stage renal disease for which she is hemodialysis dependent, a stroke with left hemiparesis a few years ago, and cholecystectomy in March 2018, who has been having pain that starts in the epigastric region and radiates into the back and sometimes along the left flank. The pain usually occurs after she has just eaten and is quite severe and has a stabbing quality. At times, the pain occurs spontaneously without eating. She had one of these episodes of pain while she was having hemodialysis a few days ago and as a result of that, she was hospitalized. 2. She feels about the same as yesterday. She continues to have the severe pain that starts in the epigastric region and then goes in the back. Plans are for an endoscopy and biopsy tomorrow. She denies any new neurologic symptoms. 3. On neurological examination, at this time, she has a mild left hemiparesis involving the face and upper and lower extremities and brisker reflexes on the left side compared to the right. She is free of pain at this point in time. 4. Laboratory data revealed that she is anemic with hemoglobin of 11.3 G. Her chemistry panel reveals creatinine elevated to 7.3, glucose elevated to 209, alkaline phosphatase elevated to 190, amylase at 18, and lipase at 67. 5. A CT scan of the abdomen and pelvis without and with contrast reveals a 3.5- cm mass involving the head of the pancreas and the uncinate process suspicious of malignancy. In addition, there seems to be a mass in the liver and a mass in the left adrenal gland. 6. The patient's history and neurological examination are most compatible with pancreatic mass, most probably a tumor causing pancreatic pain. Recommendations 1. Management of pancreatic mass as per Dr. Adams. 2. At this point in time, no neurological intervention is recommended. Kimberley Cheema M.D., M.S.P.H. KIMBERLEY CHEEMA Jul 09, 2018 20:50
--- NOTE | 2018-07-09 22:24 | General Progress Note ---
Assessment/Plan Assessment/Plan Assessment - head of pancreas mass, suspicious for carcinoma - ill-defined liver lesions, possible mets - ESRD/HD - Mildly elevated Alk phos - ? renal osteodystrophy, ? liver mets Recommendations - PO as tolerated - await CA 19-9 --> normal - check CEA - check GGT - Hold plavix - will arrange for EUS / FNA for Sunday (may have to postpone due to plavix) Subjective Allergies: Coded Allergies: No Known Allergies (Unverified , 07/08/18) Subjective Feels better some (L) sided abd pain d/w patient re CT findings rec EUS/FNA Objective Last 24 Hour Vital Signs Date Time Temp Pulse Resp B/P (MAP) Pulse Ox O2 Delivery O2 Flow Rate FiO2 07/09/18 21:00 Room Air 07/09/18 20:42 86 155/78 07/09/18 20:00 97.7 86 20 155/78 (103) 93 97.7 07/09/18 17:00 166/85 07/09/18 15:54 99.1 87 18 166/85 (112) 96 99.1 07/09/18 12:21 Room Air 07/09/18 11:56 97.0 82 16 144/70 (94) 96 97.0 07/09/18 09:37 80 191/97 07/09/18 09:00 191/97 07/09/18 09:00 80 191/97 07/09/18 08:57 Room Air 07/09/18 08:37 98.7 80 16 191/97 (128) 98 98.7 07/09/18 04:00 98.2 74 18 176/88 (117) 92 98.2 07/09/18 00:00 97.7 74 18 143/77 (99) 94 97.7 Intake and Output 07/08/18 07/09/18 19:00 07:00 Intake Total 240 ml 460 ml Balance 240 ml 460 ml Intake Oral 240 ml 460 ml # Voids 3 2 Laboratory Tests 07/09/18 05:55: White Blood Count 4.6L, Red Blood Count 3.77L, Hemoglobin 10.3L, Hematocrit 31.7L, Mean Corpuscular Volume 84, Mean Corpuscular Hemoglobin 27.2, Mean Corpuscular Hemoglobin Concent 32.3, Red Cell Distribution Width 13.9, Platelet Count 157, Mean Platelet Volume 7.9, Neutrophils (%) (Auto) 56.1, Lymphocytes (% ) (Auto) 27.7, Monocytes (%) (Auto) 10.1H, Eosinophils (%) (Auto) 5.6H, Basophils (%) (Auto) 0.6, Prothrombin Time 11.5, Prothromb Time International Ratio 1.1, Activated Partial Thromboplast Time 29, Sodium Level 132L, Potassium Level 3.9, Chloride Level 98, Carbon Dioxide Level 23, Anion Gap 11, Blood Urea Nitrogen 21H, Creatinine 9.0H, Estimat Glomerular Filtration Rate 5.3, Glucose Level 163H, Calcium Level 8.4L, Gamma Glutamyl Transpeptidase 40 Height (Feet): 5 Height (Inches): 10.00 Weight (Pounds): 259 Objective Obese AA woman NCAT supple CTA RRR abd soft obese ND no edema nonfocal Karina Desai MD Jul 09, 2018 22:24
[2018-07-10] VITALS: BP 171/83
[2018-07-10 04:00] VITALS: BP 172/84
[2018-07-10] MEDS: NovoLOG Insulin Flexpen SUBQ SCH ×4 (06:10→21:24)
--- NOTE | 2018-07-10 07:09 | Anethesia Preoperative Eval ---
Anesthesia Pre-op PMH/ROS General Date of Evaluation: Jul 10, 2018 Time of Evaluation: 07:06 Anesthesiologist: estrella ASA Score: ASA 4 Mallampati Score Class I : Soft palate, uvula, fauces, pillars visible Class II: Soft palate, uvula, fauces visible Class III: Soft palate, base of uvula visible Class IV: Only hard plate visible Mallampati Classification: Class II Surgeon: tony Diagnosis: pancreatitis Surgical Procedure: eus w/fna Anesthesia History: none Family History: no anesthesia problems Allergies: Coded Allergies: No Known Allergies (Unverified , 07/08/18) Medications: see eMAR Patient NPO?: Yes Past Medical History Cardiovascular: Reports: HTN Pulmonary: Reports: other - bronchitis, pneumonia, Gastrointestinal/Genitourinary: Reports: ESRD, other - pancreatitis, pancreatic mass, Hematology/Immune: Reports: anemia Musculoskeletal/Integumentary: Reports: edema Anesthesia Pre-op Phys. Exam Physician Exam Last Vital Signs Date Time Temp Pulse Resp B/P (MAP) Pulse Ox O2 Delivery O2 Flow Rate FiO2 07/10/18 04:00 97.7 80 20 172/84 (113) 95 97.7 07/09/18 21:00 Room Air Airway Exam Mallampati Score: Class II Anesthesia Pre-op A/P Risk Assessment & Plan Assessment: asa4 Plan: patient received dose of plavix yesterday. consider holding procedure for a few days while off anticoagulants, then mac Status Change Before Surgery: No Pre-Antibiotics Drug: Yovana Hernadez MD Jul 10, 2018 07:09
[2018-07-10] MEDS ORDERED: fentaNYL 100 mcg/2 mL IV PRN (07:15)
[2018-07-10] MEDS ORDERED: DiphenhydrAMINE 50mg/ml Inj IVP PRN (07:15)
[2018-07-10] MEDS ORDERED: Atropine Inj 1mg/10ml Syr IV PRN (07:15)
[2018-07-10] MEDS ORDERED: Midazolam 2mg/2ml Inj IVP PRN (07:15)
[2018-07-10 08:00] VITALS: BP 159/91
[2018-07-10] MEDS: Carvedilol 12.5mg tab ORAL SCH (08:13)
[2018-07-10] MEDS: Losartan 50mg tab ORAL SCH ×2 (08:13→17:18)
--- NOTE | 2018-07-10 11:33 | Nephrology Progress Note ---
Assessment/Plan Plan Pancreatic mass - w/u in progress. FNA ordered. ESRD - AVF malfunctioning. Vasc. Sx called. HD TTS Subjective Subjective Assumed care of Mrs. Knutson my patient kindly from Dr. Dany Bro. Chart reviewed. Objective Objective Last 24 Hour Vital Signs Date Time Temp Pulse Resp B/P (MAP) Pulse Ox O2 Delivery O2 Flow Rate FiO2 07/10/18 09:00 Room Air 07/10/18 08:13 159/91 07/10/18 08:13 87 159/91 07/10/18 08:13 87 159/91 07/10/18 08:00 98.4 87 12 159/91 (113) 97 98.4 07/10/18 04:00 97.7 80 20 172/84 (113) 95 97.7 07/10/18 00:00 98.2 80 20 171/83 (112) 94 98.2 07/09/18 21:00 Room Air 07/09/18 20:42 86 155/78 07/09/18 20:00 97.7 86 20 155/78 (103) 93 97.7 07/09/18 17:00 166/85 07/09/18 15:54 99.1 87 18 166/85 (112) 96 99.1 07/09/18 12:21 Room Air 07/09/18 11:56 97.0 82 16 144/70 (94) 96 97.0 Intake and Output 07/09/18 07/10/18 19:00 07:00 Intake Total 720 ml Output Total 3000 ml Balance -2280 ml Intake Oral 720 ml Hemodialysis UF 3000 ml # Voids 1 Laboratory Tests 07/10/18 06:30: Gamma Glutamyl Transpeptidase 31, Carcinoembryonic Antigen [Pending] Height (Feet): 5 Height (Inches): 10.00 Weight (Pounds): 236 Objective Obese CV RR Lungs CTA Abd SNT. BS + E No CCE HUAN AVF + bruit. Aletha Pedroza MD Jul 10, 2018 11:33
[2018-07-10] MEDS ORDERED: Heparin 1000 units/ml 1ml Vial INJ PRN (11:49)
[2018-07-10 12:00] VITALS: BP 176/89
[2018-07-10 16:00] VITALS: BP 159/80
--- NOTE | 2018-07-10 16:37 | Neurology Progress Note ---
Interim History Interim History Interim History Ms. Eamon Raines feels about the same as yesterday. She continues to have the severe pain that starts in the epigastric region and then goes in the back. Plans are for an endoscopy and biopsy on Sunday - it was postponed today. She denies any new neurologic symptoms. Review of Systems Neuro Review of Systems Benign. Objective Physical Exam Last Vital Signs Date Time Temp Pulse Resp B/P (MAP) Pulse Ox O2 Delivery O2 Flow Rate FiO2 07/10/18 16:00 99.0 96 19 159/80 (106) 96 99.0 07/10/18 09:00 Room Air Laboratory Tests Test 07/10/18 06:30 Gamma Glutamyl Transpeptidase 31 U/L (5-85) Carcinoembryonic Antigen Pending Neurologic Exam Objective PHYSICAL EXAMINATION: GENERAL: She is a well-developed, well-nourished, obese, black lady, sitting up in a chair, in no acute distress. HEAD: Normocephalic and atraumatic. EENT: Examination benign. NECK: No neck rigidity was observed. NEUROLOGIC EXAMINATION: MENTAL STATUS EXAMINATION: She was awake and alert. She was oriented to person, place, and time. She was able to recall 3/3 words immediately, after 1 minute, and after 3 minutes. She was able to remember presidents Trump through [employer] with hints. Her mathematical skills were good. Her visuospatial function was preserved. SPEECH: She had no dysarthria. LANGUAGE: She had no aphasia. CRANIAL NERVE EXAMINATION: II: The visual phillips were intact on confrontation testing. III, IV & : The external ocular movements were full and the pupils 3 mm in diameter, equal, round, regular, and reactive to light. V: She had normal facial sensations, and the temporales, masseters, and pterygoids functioned normally. VII: She had mild left VII central facial paresis. VIII: She was able to hear well bilaterally and had no nystagmus. IX: The palate moved symmetrically on phonation. X: She had no hoarseness of voice. XI: The sternocleidomastoids and trapezii functioned normally. XII: The tongue was in the midline without any fasciculations or atrophy. MOTOR SYSTEM: The tone was normal in all four extremities. Examination of muscle mass revealed no focal wasting. Examination of power revealed G 5/5 power except for G 4++/5 power in the left finger extensors and G 4+/5 power in the left iliopsoas. SENSORY EXAMINATION: She had intact sensations to pinprick, light touch, and graphesthesia. COORDINATION: She performed well on kpvzyq-qg-plok and dzco-hi-iobp testing. The Romberg test was negative. REFLEXES: 0 on the right and 1+ on the left at the biceps, triceps, brachioradialis, and knees; 0 at both ankles. The plantar responses were flexor bilaterally. STANCE: She stood up with support. GAIT: She walked independently. Impression/Recommendations Diagnostic Impression 1. Ms. Yumiko Raines is a 67-year-old, right-handed, black lady, with past history of thyroid problems, hypertension, diabetes mellitus, and end- stage renal disease for which she is hemodialysis dependent, a stroke with left hemiparesis a few years ago, and cholecystectomy in March 2018, who has been having pain that starts in the epigastric region and radiates into the back and sometimes along the left flank. The pain usually occurs after she has just eaten and is quite severe and has a stabbing quality. At times, the pain occurs spontaneously without eating. She had one of these episodes of pain while she was having hemodialysis a few days ago and as a result of that, she was hospitalized. 2. She feels about the same as yesterday. She continues to have the severe pain that starts in the epigastric region and then goes in the back. Plans are for an endoscopy and biopsy on Sunday. She denies any new neurologic symptoms. 3. On neurological examination, at this time, she has a mild left hemiparesis involving the face and upper and lower extremities and brisker reflexes on the left side compared to the right. She is free of pain at this point in time. 4. Laboratory data revealed that she is anemic with hemoglobin of 11.3 G. Her chemistry panel reveals creatinine elevated to 7.3, glucose elevated to 209, alkaline phosphatase elevated to 190, amylase at 18, and lipase at 67. 5. A CT scan of the abdomen and pelvis without and with contrast reveals a 3.5- cm mass involving the head of the pancreas and the uncinate process suspicious of malignancy. In addition, there seems to be a mass in the liver and a mass in the left adrenal gland. 6. The patient's history and neurological examination are most compatible with pancreatic mass, most probably a tumor causing pancreatic pain. Recommendations 1. Management of pancreatic mass as per Dr. Adams. 2. At this point in time, no neurological intervention is recommended. Kimberley Cheema M.D., M.S.P.Ami. KIMBERLEY CHEEMA Jul 10, 2018 16:37
[2018-07-10 20:00] VITALS: BP 156/74
[2018-07-10] MEDS: Atorvastatin 80mg tab ORAL SCH (21:22)
[2018-07-10] MEDS: Carvedilol 25mg Tab ORAL SCH (21:23)
[2018-07-10] MEDS: Miralax 17gm pkt ORAL PRN (22:29)
--- NOTE | 2018-07-10 23:12 | General Progress Note ---
Assessment/Plan Assessment/Plan Assessment - head of pancreas mass, suspicious for carcinoma - ill-defined liver lesions, possible mets - ESRD/HD - Mildly elevated Alk phos - ? renal osteodystrophy, ? liver mets Recommendations - PO as tolerated - await CA 19-9 --> normal - check CEA - check GGT - Hold plavix - EUS/FNA Sunday Subjective Allergies: Coded Allergies: No Known Allergies (Unverified , 07/08/18) Subjective Feels better d/w patient re CT findings and possibility of CA EUS cancelled for today due to recent Plavix rescheduled for Sunday patient understands her responsibility to arrange outpatient EUS/FNA if d/c'd Objective Last 24 Hour Vital Signs Date Time Temp Pulse Resp B/P (MAP) Pulse Ox O2 Delivery O2 Flow Rate FiO2 07/10/18 21:23 72 156/74 07/10/18 21:00 Room Air 07/10/18 20:00 97.2 77 20 156/74 (101) 96 97.2 07/10/18 17:18 159/80 07/10/18 16:00 99.0 96 19 159/80 (106) 96 99.0 07/10/18 12:24 88 176/89 07/10/18 12:00 98.4 88 19 176/89 (118) 98 98.4 07/10/18 09:00 Room Air 07/10/18 08:13 159/91 07/10/18 08:13 87 159/91 07/10/18 08:13 87 159/91 07/10/18 08:00 98.4 87 12 159/91 (113) 97 98.4 07/10/18 04:00 97.7 80 20 172/84 (113) 95 97.7 07/10/18 00:00 98.2 80 20 171/83 (112) 94 98.2 Intake and Output 07/09/18 07/10/18 19:00 07:00 Intake Total 720 ml Output Total 3000 ml Balance -2280 ml Intake Oral 720 ml Hemodialysis UF 3000 ml # Voids 1 Laboratory Tests 07/10/18 06:30: Gamma Glutamyl Transpeptidase 31, Carcinoembryonic Antigen [Pending] Height (Feet): 5 Height (Inches): 10.00 Weight (Pounds): 236 Objective Obese AA woman NCAT supple CTA RRR abd soft obese ND no edema nonfocal Karina Desai MD Jul 10, 2018 23:12
[2018-07-11] VITALS (8 sets, daily range): BP systolic 139–162; BP diastolic 63–89
[2018-07-11] MEDS: NovoLOG Insulin Flexpen SUBQ SCH ×4 (06:12→20:36)
[2018-07-11] MEDS: Carvedilol 25mg Tab ORAL SCH ×2 (08:23→21:23)
[2018-07-11] MEDS: Losartan 50mg tab ORAL SCH ×2 (09:00→18:00)
[2018-07-11] MEDS: Morphine Sulfate 2mg/ml Inj IVP PRN ×2 (11:20→20:21)
[2018-07-11] MEDS ORDERED: Heparin Sod 1000 units/ml 10ml IV PRN (11:48)
--- NOTE | 2018-07-11 13:56 | Nephrology Progress Note ---
Assessment/Plan Plan Pancreatic mass - w/u in progress. FNA ordered. Will be done Sunday due to Plavix ESRD - AVF malfunctioning. Vasc. Sx Dr. Xiong following. HD TTS Subjective Subjective Very poor PO intake. Lost 20 Lbs. in 2 weeks. Objective Objective Last 24 Hour Vital Signs Date Time Temp Pulse Resp B/P (MAP) Pulse Ox O2 Delivery O2 Flow Rate FiO2 07/11/18 12:00 97.2 73 18 152/75 (100) 97 97.2 07/11/18 09:00 144/84 07/11/18 09:00 74 144/84 07/11/18 08:23 74 144/84 07/11/18 08:00 98.1 74 19 144/84 (104) 99 98.1 07/11/18 07:48 Room Air 07/11/18 04:00 97.8 73 19 148/66 (93) 92 97.8 07/11/18 00:00 98.0 76 19 139/63 (88) 97 98.0 07/10/18 21:23 72 156/74 07/10/18 21:00 Room Air 07/10/18 20:00 97.2 77 20 156/74 (101) 96 97.2 07/10/18 17:18 159/80 07/10/18 16:00 99.0 96 19 159/80 (106) 96 99.0 Intake and Output 07/10/18 07/11/18 19:00 07:00 Intake Total 590 ml Balance 590 ml Intake Oral 240 ml Other 350 ml # Voids 3 Height (Feet): 5 Height (Inches): 10.00 Weight (Pounds): 238 Objective Obese CV RR Lungs CTA Abd SNT. BS + E No CCE HUAN AVF + bruit. Aletha Pedroza MD Jul 11, 2018 13:56
[2018-07-11] MEDS ORDERED: Milk of Magnesia 30ml Ud ORAL PRN (21:00)
--- NOTE | 2018-07-11 21:15 | Neurology Progress Note ---
Interim History Interim History Interim History Ms. Eamon Raines feels about the same as yesterday. She continues to have the severe pain that starts in the epigastric region and then goes in the back. Plans are for an endoscopy and biopsy on Sunday - it is going to be done at [facility]. She denies any new neurologic symptoms. Review of Systems Neuro Review of Systems Benign. Objective Physical Exam Last Vital Signs Date Time Temp Pulse Resp B/P (MAP) Pulse Ox O2 Delivery O2 Flow Rate FiO2 07/11/18 20:51 97.9 07/11/18 18:00 156/72 07/11/18 16:00 79 18 98 07/11/18 07:48 Room Air Neurologic Exam Objective PHYSICAL EXAMINATION: GENERAL: She is a well-developed, well-nourished, obese, black lady, lying in bed, undergoing HD, in no acute distress. HEAD: Normocephalic and atraumatic. EENT: Examination benign. NECK: No neck rigidity was observed. NEUROLOGIC EXAMINATION: MENTAL STATUS EXAMINATION: She was awake and alert. She was oriented to person, place, and time. She was able to recall 3/3 words immediately, after 1 minute, and after 3 minutes. She was able to remember presidents Trump through [employer] with hints. Her mathematical skills were good. Her visuospatial function was preserved. SPEECH: She had no dysarthria. LANGUAGE: She had no aphasia. CRANIAL NERVE EXAMINATION: II: The visual phillips were intact on confrontation testing. III, IV & : The external ocular movements were full and the pupils 3 mm in diameter, equal, round, regular, and reactive to light. V: She had normal facial sensations, and the temporales, masseters, and pterygoids functioned normally. VII: She had mild left VII central facial paresis. VIII: She was able to hear well bilaterally and had no nystagmus. IX: The palate moved symmetrically on phonation. X: She had no hoarseness of voice. XI: The sternocleidomastoids and trapezii functioned normally. XII: The tongue was in the midline without any fasciculations or atrophy. MOTOR SYSTEM: The tone was normal in all four extremities. Examination of muscle mass revealed no focal wasting. Examination of power revealed G 5/5 power except for G 4++/5 power in the left finger extensors and G 4+/5 power in the left iliopsoas. SENSORY EXAMINATION: She had intact sensations to pinprick, light touch, and graphesthesia. COORDINATION: She performed well on ckxkky-oy-vtyk and gopa-qq-zxxy testing. The Romberg test was negative. REFLEXES: 0 on the right and 1+ on the left at the biceps, triceps, brachioradialis, and knees; 0 at both ankles. The plantar responses were flexor bilaterally. STANCE & GAIT: Were deferred. Impression/Recommendations Diagnostic Impression 1. Ms. Yumiko Raines is a 67-year-old, right-handed, black lady, with past history of thyroid problems, hypertension, diabetes mellitus, and end- stage renal disease for which she is hemodialysis dependent, a stroke with left hemiparesis a few years ago, and cholecystectomy in March 2018, who has been having pain that starts in the epigastric region and radiates into the back and sometimes along the left flank. The pain usually occurs after she has just eaten and is quite severe and has a stabbing quality. At times, the pain occurs spontaneously without eating. She had one of these episodes of pain while she was having hemodialysis a few days ago and as a result of that, she was hospitalized. 2. She feels about the same as yesterday. She continues to have the severe pain that starts in the epigastric region and then goes in the back. Plans are for an endoscopy and biopsy on Sunday at [facility]. She denies any new neurologic symptoms. 3. On neurological examination, at this time, she has a mild left hemiparesis involving the face and upper and lower extremities and brisker reflexes on the left side compared to the right. She is free of pain at this point in time. 4. Laboratory data revealed that she is anemic with hemoglobin of 11.3 G. Her chemistry panel reveals creatinine elevated to 7.3, glucose elevated to 209, alkaline phosphatase elevated to 190, amylase at 18, and lipase at 67. 5. A CT scan of the abdomen and pelvis without and with contrast reveals a 3.5- cm mass involving the head of the pancreas and the uncinate process suspicious of malignancy. In addition, there seems to be a mass in the liver and a mass in the left adrenal gland. 6. The patient's history and neurological examination are most compatible with pancreatic mass, most probably a tumor causing pancreatic pain. Recommendations 1. Management of pancreatic mass as per GI. 2. At this point in time, no neurological intervention is recommended. Kimberley Cheema M.D., M.SJose Luis.Ami. KIMBERLEY CHEEMA Jul 11, 2018 21:15
[2018-07-11] MEDS: Atorvastatin 80mg tab ORAL SCH (21:23)
[2018-07-11] MEDS ORDERED: COREG25 MG ORAL (21:30)
[2018-07-11] MEDS ORDERED: NOVOLOG100 UNIT/3 SUBQ (21:33)
[2018-07-11] MEDS ORDERED: PROTONIX40 MG ORAL (21:34)
[2018-07-11] MEDS ORDERED: ZOFRAN 4 MG4 MG/2 ML IV (21:34)
[2018-07-11] MEDS ORDERED: MORPHINE 22 MG/1 ML IV (21:34)
[2018-07-11] MEDS ORDERED: MORPHINE 44 MG/1 ML IV (21:34)
[2018-07-11] MEDS ORDERED: MIRALAX17 G2 ORAL (21:35)
[2018-07-11] MEDS ORDERED: AMBIEN5 MG ORAL (21:35)
--- NOTE | 2018-07-11 22:17 | General Progress Note ---
Assessment/Plan Assessment/Plan Assessment - head of pancreas mass, suspicious for carcinoma, but negative CEA and CA19-9 - ->? autoimmune pancreatitis - ill-defined liver lesions, possible mets - ESRD/HD - Mildly elevated Alk phos - ? renal osteodystrophy, ? liver mets Recommendations - PO as tolerated - Hold plavix - [place] [facility] [place] Allergies: Coded Allergies: No Known Allergies (Unverified , 07/08/18) Subjective Feels better d/w patient re CT findings and possibility of CA EUS cancelled for today due to recent [place] [facility] understands her responsibility to arrange outpatient EUS/FNA if d/c'd Objective Last 24 Hour Vital Signs Date Time Temp Pulse Resp B/P (MAP) Pulse Ox O2 Delivery O2 Flow Rate FiO2 07/11/18 21:23 73 175/88 07/11/18 20:51 97.9 07/11/18 20:21 97.9 07/11/18 20:00 97.0 79 18 151/81 (104) 95 97.0 07/11/18 18:00 156/72 07/11/18 18:00 157/79 (105) 07/11/18 16:00 97.9 79 18 162/89 (113) 98 97.9 07/11/18 12:00 97.2 73 18 152/75 (100) 97 97.2 07/11/18 09:00 144/84 07/11/18 09:00 74 144/84 07/11/18 08:23 74 144/84 07/11/18 08:00 98.1 74 19 144/84 (104) 99 98.1 07/11/18 07:48 Room Air 07/11/18 04:00 97.8 73 19 148/66 (93) 92 97.8 07/11/18 00:00 98.0 76 19 139/63 (88) 97 98.0 Intake and Output 07/10/18 07/11/18 19:00 07:00 Intake Total 590 ml Balance 590 ml Intake Oral 240 ml Other 350 ml # Voids 3 Height (Feet): 5 Height (Inches): 10.00 Weight (Pounds): 238 Objective Obese AA woman NCAT supple CTA RRR abd soft obese ND no edema nonfocal Karina Desai MD Jul 11, 2018 22:17
--- NOTE | 2018-07-12 12:15 | Discharge Summary ---
Discharge Summary Discharge Summary _ DATE OF ADMISSION: 07/06/2018 DATE OF DISCHARGE: 07/11/2018 CONSULTANTS: Dr. Karina Rueda BRIEF HOSPITAL COURSE: Patient is a 67-year-old -[place] female, with history of end-stage renal disease. She has been on dialysis since November 2015. She had uncontrolled blood pressure for many years. She has history of diabetes. She had recent cholecystectomy done at [facility], but since then, has been in and out of the hospital for different reasons. She was admitted for fluid overload at [facility]. Patient had hemodialysis, however complained of severe left-sided flank pain. Pain was described to be stabbing in nature. She presented to ED for evaluation of flank and back pain. On evaluation at ED, blood pressure was 221/107, heart rate 103. Blood work did not show any leukocytosis. Potassium was 3.2. LFTs were normal. Lipase normal. She had CT of the abdomen and pelvis without contrast that showed a nonspecific enlarged/edematous appearance of the pancreatic head and uncinate process. There was mild peripancreatic inflammatory stranding, which may suggest residual pancreatitis. She was given clonidine for blood pressure. She was given clonidine for blood pressure. She was then admitted for evaluation of acute pancreatitis and chronic renal failure. She was placed on clear liquid diet. She was given IV morphine for pain. She was seen by GI and urologist. CT of the abdomen with contrast was done. Findings showed a suspicious 2.5 cm mass involving the head of the pancreas and uncinate process, findings suspicious for malignancy. There was suspicion of metastatic neoplasm involving the liver and a nonspecific mass on the left adrenal gland. CEA and CA 199 were normal. She had elevated alkaline phosphatase. Neurologic evaluation was done. Patient had prior stroke with left-sided weakness. She had pain in the epigastric region that radiated to the back and across the flanks. Neurologic examination showed mild left hemiparesis involving the face and upper and lower extremities. Pain has resolved. There was no neurological intervention recommended. She was given, carvedilol, losartan and amlodipine for blood pressure control. She was continued on Lipitor. Blood glucose was monitored. She was given sliding scale insulin. She had malfunctioning AV fistula. Vascular surgeon was consulted. Left upper extremity AV graft imaging revealed patent dialysis access graft at the upper arm level. There was hematoma noted at the proximal posterior graft level. Patient was scheduled for endoscopic ultrasound with biopsy, however, was canceled as patient was taking Plavix. Plavix was placed on hold and procedure was rescheduled. She was eventually transferred to [facility]. FINAL DIAGNOSES: Pancreatic mass Malfunctioning AV fistula End-stage renal disease on hemodialysis Elevated alkaline phosphatase Hypertension Diabetes mellitus Hyperlipidemia DISPOSITION: Patient was transferred to [facility]. DISCHARGE MEDICATIONS: Refer to Discharge Medication List. I have been assigned to dictate discharge summary on this account, and I was not involved in the patient's management. Anne-Marie Adams NP Jul 12, 2018 12:15
== END 2018-07-11 23:40 | disposition short-term general hospital (02) | DRG 438 ==
LOC: EMR 10:28 → 4E 12:52 → MERGE 12:52 → EDBEDREQ 14:06 → 4E 07-07 15:13
PROC: 5A1D70Z Performance of Urinary Filtration, Intermittent, Less than 6 Hours Per Day (ICD-10-PCS; principal; 2018-07-09)
PROC: 5A1D70Z Performance of Urinary Filtration, Intermittent, Less than 6 Hours Per Day (ICD-10-PCS; 2018-07-11)
DX: K85.90 Acute pancreatitis without necrosis or infection, unspecified (principal); N18.6 End stage renal disease; I12.0 Hypertensive chronic kidney disease with stage 5 chronic kidney disease or end stage renal disease; I69.354 Hemiplegia and hemiparesis following cerebral infarction affecting left non-dominant side; T82.41XA Breakdown (mechanical) of vascular dialysis catheter, initial encounter; E11.22 Type 2 diabetes mellitus with diabetic chronic kidney disease; Z99.2 Dependence on renal dialysis; E03.9 Hypothyroidism, unspecified; R74.8 Abnormal levels of other serum enzymes; K86.89 Other specified diseases of pancreas; K76.9 Liver disease, unspecified; Y84.1 Kidney dialysis as the cause of abnormal reaction of the patient, or of later complication, without mention of misadventure at the time of the procedure; Y92.89 Other specified places as the place of occurrence of the external cause
CPT/HCPCS: 36415; 74176; 74177; 80048; 80053; 80061; 82150; 82378; 82962; 82977; 83690; 84484; 85025; 85610; 85730; 86850; 86900; 86901; 87081; 93922; 96374; 96375; 99285; J1815; J2405